=== PATIENT | female | born 1990 | race Caucasian/White ===

== ENCOUNTER 2016-12-04 14:54 | Outpatient (CLI) | payer MEDICAID ==
[2016-12-04 15:54] LABS: ABSOLUTE BASOPHILS # (AUTO) 0.1 10^3/uL (0.0-0.2); ABSOLUTE EOSINOPHILS # (AUTO) 0.1 10^3/uL (0.0-0.6); ABSOLUTE LYMPHOCYTES (AUTO) 2.1 10^3/uL (0.5-4.7); ABSOLUTE MONOCYTES (AUTO) 0.7 10^3/uL (0.1-1.4); ABSOLUTE NEUT (AUTO) 5.7 10^3/uL (1.7-8.2); BASOPHILS % (AUTO) 0.8 % (0-2); EOSINOPHILS % (AUTO) 1.3 % (0-6); HEMATOCRIT 33.4 % (36.0-47.0); HEMOGLOBIN 11.7 g/dL (12.0-15.5); HGB HCT DIFFERENCE 1.7; MEAN CORPUSCULAR HEMOGLOBIN 29.5 pg (27.0-33.4); MEAN CORPUSCULAR HGB CONC 35.1 g/dL (32.0-36.0); MEAN CORPUSCULAR VOLUME 84 fl (80-97); MONOCYTES % (AUTO) 8.6 % (3-13); RED BLOOD COUNT 3.98 10^6/uL (3.72-5.28); RED CELL DISTRIBUTION WIDTH 13.5 % (11.5-14.0); SEGMENTED NEUTROPHILS % (AUTO) 65.3 % (42-78); WHITE BLOOD COUNT 8.7 10^3/uL (4.0-10.5)
[2016-12-04 16:17] LABS: ALANINE AMINOTRANSFERASE 21 U/L (9-52); ALBUMIN 3.1 g/dL (3.5-5.0); ALKALINE PHOSPHATASE 127 U/L (38-126); ANION GAP 9 (5-19); ASPARTATE AMINO TRANSFERASE 15 U/L (14-36); BILIRUBIN,DIRECT 0.1 mg/dL (0.0-0.4); BILIRUBIN,TOTAL 0.3 mg/dL (0.2-1.3); BLOOD UREA NITROGEN 8 mg/dL (7-20); CALCIUM 9.4 mg/dL (8.4-10.2); CARBON DIOXIDE 24 mmol/L (22-30); CHLORIDE 106 mmol/L (98-107); CREATININE RESULT 0.58 mg/dL (0.52-1.25); GLUCOSE 86 mg/dL (75-110); LDH 362 U/L (313-618); POTASSIUM 4.5 mmol/L (3.6-5.0); SODIUM 138.7 mmol/L (137-145); TOTAL PROTEIN 5.9 g/dL (6.3-8.2); URIC ACID 5.5 mg/dL (2.5-6.2)
[2016-12-04 16:31] LABS: APPEARANCE,URINE CLEAR; BILIRUBIN,URINE NEGATIVE (NEGATIVE); GLUCOSE, URINE NEGATIVE (NEGATIVE); KETONES,URINE NEGATIVE (NEGATIVE); LEUKOCYTE ESTERASE,URINE TRACE (NEGATIVE); NITRITE,URINE NEGATIVE (NEGATIVE); PROTEIN,URINE NEGATIVE (NEGATIVE); URINE SPECIFIC GRAVITY 1.011; UROBILINOGEN,URINE NEGATIVE mg/dL (<2.0)
--- NOTE | 2016-12-04 16:41 | Non Stress Test Report ---
Non Stress Test Datetime Report Generated by CPN: 12/04/2016 16:41 DEMOGRAPHIC EGA NST: 35.4 INDICATION Indication for Study: Ordered by Provider MONITORING Monitor Explained: Monitor Explained; Test Explained; Patient Verbalized Understanding Time on Monitor: 12/04/2016 15:06 Time off Monitor: 12/04/2016 16:01 NST Duration: 55 NST INTERVENTIONS NST Interventions: None Physician Notified NST: Tracy Coronel CNM BABY A: [id number] Movement : Present Contraction Frequency : none FHR Baseline : 125 Accelerations : 15X15 Decelerations : None Variability : Moderate 6-25bpm NST Review: Meets Criteria for Reactive NST NST Review and Verified By : SHAYNE Carter Results: Reactive NST REPORT Report Trigger: Send Report
[2016-12-04 16:44] LABS: URINE BARBITURATES SCREEN NEGATIVE; URINE METHADONE SCREEN NEGATIVE; URINE OPIATES LOW NEGATIVE; URINE PHENCYCLIDINE SCREEN NEGATIVE
== END 2016-12-04 16:36 | disposition home or self-care (01) ==
LOC: LC 14:54
PROVIDERS: ATTEND Obstetrics & Gynecology
PROC: 4A1HXCZ Monitoring of Products of Conception, Cardiac Rate, External Approach (ICD-10-PCS; principal; 2016-12-04)
DX: Z36 Encounter for antenatal screening of mother (principal); Z13.6 Encounter for screening for cardiovascular disorders; Z3A.35 35 weeks gestation of pregnancy
CPT/HCPCS: 36415; 59025; 80053; 80307; 81001; 83615; 84550; 85025

== ENCOUNTER 2016-12-18 14:59 | Outpatient (CLI) | payer MEDICAID | END 2016-12-18 15:24 | disposition home or self-care (01) | LOC: LC 14:59 | PROVIDERS: ATTEND Student in an Organized Health Care Education/Training Program | PROC: 4A1HXCZ Monitoring of Products of Conception, Cardiac Rate, External Approach (ICD-10-PCS; principal; 2016-12-18) | DX: Z34.93 Encounter for supervision of normal pregnancy, unspecified, third trimester (principal); Z36 Encounter for antenatal screening of mother; Z3A.37 37 weeks gestation of pregnancy | CPT/HCPCS: 59025 ==

== ENCOUNTER 2016-12-25 04:58 | Inpatient (IN) | payer MEDICAID ==
[2016-12-24 11:27] LABS: ABSOLUTE EOSINOPHILS # (AUTO) 0.1 10^3/uL (0.0-0.6); ABSOLUTE LYMPHOCYTES (AUTO) 2.1 10^3/uL (0.5-4.7); ABSOLUTE MONOCYTES (AUTO) 0.5 10^3/uL (0.1-1.4); BASOPHILS % (AUTO) 0.3 % (0-2); EOSINOPHILS % (AUTO) 1.3 % (0-6); HEMATOCRIT 36.8 % (36.0-47.0); HEMOGLOBIN 12.4 g/dL (12.0-15.5); HGB HCT DIFFERENCE 0.4; LYMPHOCYTES % (AUTO) 23.5 % (13-45); MEAN CORPUSCULAR HEMOGLOBIN 28.5 pg (27.0-33.4); MEAN CORPUSCULAR HGB CONC 33.8 g/dL (32.0-36.0); MEAN CORPUSCULAR VOLUME 84 fl (80-97); MONOCYTES % (AUTO) 5.7 % (3-13); RED BLOOD COUNT 4.35 10^6/uL (3.72-5.28); SEGMENTED NEUTROPHILS % (AUTO) 69.2 % (42-78); WHITE BLOOD COUNT 8.7 10^3/uL (4.0-10.5)
[2016-12-24 11:40] LABS: APPEARANCE,URINE SLIGHTLY-CLOUDY; BILIRUBIN,URINE NEGATIVE (NEGATIVE); GLUCOSE, URINE NEGATIVE (NEGATIVE); KETONES,URINE NEGATIVE (NEGATIVE); PROTEIN,URINE NEGATIVE (NEGATIVE); URINE SPECIFIC GRAVITY 1.014
[2016-12-24 11:41] LABS: LEUKOCYTE ESTERASE,URINE TRACE (NEGATIVE); NITRITE,URINE NEGATIVE (NEGATIVE); RBC,URINE 0-1 /HPF; UROBILINOGEN,URINE NEGATIVE mg/dL (<2.0)
[2016-12-24 11:50] LABS: URINE BARBITURATES SCREEN NEGATIVE; URINE METHADONE SCREEN NEGATIVE; URINE OPIATES LOW NEGATIVE; URINE PHENCYCLIDINE SCREEN NEGATIVE
[2016-12-25] MEDS ORDERED: CEFAZOLIN 1 GM/D5W RTU 1 GM/50 ML RTUPB IV PRN (05:00)
[2016-12-25] MEDS ORDERED: LACTATED RINGERS 1000 ML IV PRN (05:00)
[2016-12-25] MEDS ORDERED: LIDOCAINE 0.5% INJ-PF (5 MG/ML) 50 ML SDV SUBCUT PRN (05:00)
[2016-12-25] MEDS ORDERED: MIDAZOLAM 2 MG/2 ML INJ ONE (07:24)
[2016-12-25] MEDS ORDERED: OXYTOCIN 10 UNIT/ML VIAL ONE (07:24)
[2016-12-25] MEDS ORDERED: FENTANYL CITRATE INJ/PF 100 MCG/2 ML AMPUL ONE ×2 (07:24→08:56)
[2016-12-25] MEDS ORDERED: METHYLERGONOVINE MALEATE INJ/PF 0.2 MG/1 ML AMPULE ONE (07:25)
[2016-12-25] MEDS ORDERED: OXYTOCIN/NORMAL SALINE 20 UNIT/1,000 ML RTUINJ ONE (07:25)
[2016-12-25] MEDS ORDERED: ACETAMINOPHEN 100 ML IV ONE (07:25)
[2016-12-25] MEDS ORDERED: EPHEDRINE SULFATE INJ 50 MG/1 ML AMPULE ONE (07:25)
[2016-12-25] MEDS ORDERED: PROMETHAZINE HCL INJ 25 MG/1 ML VIAL IV PRN ×3 (07:56→09:08)
[2016-12-25] MEDS ORDERED: DIPHENHYDRAMINE HCL 50 MG/ML VIAL IV PRN (07:56)
[2016-12-25] MEDS ORDERED: FENTANYL CITRATE INJ/PF 100 MCG/2 ML AMPUL IV PRN ×3 (07:56)
[2016-12-25] MEDS ORDERED: ONDANSETRON HCL INJ/PF 4 MG/2 ML SDV IV PRN (07:56)
[2016-12-25] MEDS ORDERED: OXYCODONE-ACETAMINOPHEN 5-325 MG TABLET PO PRN ×2 (07:56)
[2016-12-25] MEDS ORDERED: MORPHINE SULFATE 10 MG/ML INJ IV PRN (07:56)
[2016-12-25] MEDS ORDERED: MEPERIDINE HCL/PF INJ 25 MG/1 ML DISP.SYRIN IV PRN (07:56)
[2016-12-25] MEDS ORDERED: HYDROMORPHONE HCL INJ/PF 2 MG/ML AMPULE IV PRN (09:08)
[2016-12-25] MEDS ORDERED: DIPH/PERTUSS(ACELL)/TETANUS VAC/PF 0.5 ML SYR (>=10YO) IM PRN (09:08)
[2016-12-25] MEDS ORDERED: OXYTOCIN/NORMAL SALINE 1,000 ML IV PRN (09:08)
[2016-12-25] MEDS ORDERED: MEASLES,MUMPS&RUBELLA VACC/PF 0.5 ML VIAL SUBCUT PRN (09:08)
[2016-12-25] MEDS ORDERED: RINGERS SOLUTION,LACTATED 1,000 ML IV PRN (09:08)
[2016-12-25] MEDS ORDERED: ACETAMINOPHEN 325 MG TABLET PO PRN (09:08)
[2016-12-25] MEDS ORDERED: SIMETHICONE 80 MG TAB.CHEW PO PRN (09:08)
[2016-12-25] MEDS: DOCUSATE SODIUM 100 MG CAPSULE PO SCH ×2 (11:35→17:50)
[2016-12-25] MEDS: PRENATAL VITAMIN W-O CA NO5/FE FUMARATE/FA CAPSULE PO SCH (11:35)
[2016-12-25] MEDS ORDERED: KETOROLAC TROMETHAMINE INJ/PF 30 MG/1 ML SDV IV SCH (14:00)
[2016-12-25] MEDS ORDERED: ONDANSETRON HCL INJ/PF 4 MG/2 ML SDV ONE (14:17)
[2016-12-25] MEDS: OXYCODONE-ACETAMINOPHEN 5-325 MG TABLET PO PRN ×2 (16:55→22:06)
[2016-12-25] MEDS: KETOROLAC TROMETHAMINE INJ/PF 30 MG/1 ML SDV IV SCH (17:49)
[2016-12-26] MEDS: KETOROLAC TROMETHAMINE INJ/PF 30 MG/1 ML SDV IV SCH (02:09)
[2016-12-26] MEDS: OXYCODONE-ACETAMINOPHEN 5-325 MG TABLET PO PRN ×2 (05:30→16:29)
[2016-12-26 06:49] LABS: HEMATOCRIT 28.4 % (36.0-47.0); HGB HCT DIFFERENCE 0.7; MEAN CORPUSCULAR HGB CONC 34.2 g/dL (32.0-36.0); MEAN CORPUSCULAR VOLUME 85 fl (80-97); RED BLOOD COUNT 3.36 10^6/uL (3.72-5.28); RED CELL DISTRIBUTION WIDTH 14.3 % (11.5-14.0); WHITE BLOOD COUNT 8.9 10^3/uL (4.0-10.5)
[2016-12-26 06:52] LABS: HEMOGLOBIN 9.7 g/dL (12.0-15.5)
--- NOTE | 2016-12-26 08:10 | PDOC PROGRESS REPORT ---
Subjective-OB Subjective: Post Delivery Day: 1 26 year old. Denies any needs at this time, states lochia is stable, pain well controled, voiding without difficulty. Physical Exam (OB) Vital Signs: Temp Pulse Resp BP Pulse Ox 97.9 F 88 18 145/89 H 98 12/25/16 15:08 12/26/16 06:42 12/26/16 06:42 12/26/16 06:42 12/26/16 06:42 Intake & Output 12/25/16 12/26/16 12/27/16 06:59 06:59 06:59 Intake Total 2380 Output Total 2630 Balance -250 Weight 95.5 kg - PIH/Pre-Eclampsia Clonus: Negative Headache: Absent Epigastric Pain: No Visual Changes: No - Dressing Removed: No Incision: Dressing Closure Type: opsite - Lochia Lochia Amount: Small 10-25 ml Lochia Color: Rubra/Red - Abdomen Description: Tender, Soft Hernia Present: No Fundal Description: Firm Fundal Height: u/u - u/2 Objective-Diagnostic Laboratory: 12/26/16 06:17 12/26/16 06:17 WBC 8.9 RBC 3.36 L Hgb 9.7 L D Hct 28.4 L MCV 85 MCH 29.0 MCHC 34.2 RDW 14.3 H Plt Count 179 Assessment and Plan(PN) - Assessment and Plan (1) Status post primary low transverse section Is this a current diagnosis for this admission?: YesPlan: routine post op care (3) Acute blood loss anemia Is this a current diagnosis for this admission?: YesPlan: ferrous sulfate increase dietary iron (4) Chronic hypertension Is this a current diagnosis for this admission?: YesPlan: labetalol 100 mg qd restarted monitor bp and s/sx of pre-e - Time Spent with Patient Time with patient: Less than 15 minutes Critical Time spent with patient: Less than 15 minutes Medications reviewed and adjusted accordingly: Yes - Disposition Anticipated Discharge: Home Within: within 24 hours
[2016-12-26] MEDS: DOCUSATE SODIUM 100 MG CAPSULE PO SCH ×2 (09:31→17:46)
[2016-12-26] MEDS: PRENATAL VITAMIN W-O CA NO5/FE FUMARATE/FA CAPSULE PO SCH (09:31)
[2016-12-26] MEDS ORDERED: LABETALOL HCL 200 MG TABLET PO SCH (10:00)
[2016-12-26] MEDS: IBUPROFEN 800 MG TABLET PO SCH ×3 (11:50→23:33)
[2016-12-27] MEDS: IBUPROFEN 800 MG TABLET PO SCH (05:41)
[2016-12-27] MEDS: OXYCODONE-ACETAMINOPHEN 5-325 MG TABLET PO PRN (05:41)
[2016-12-27 08:05] VITALS: BP 135/79
--- NOTE | 2016-12-27 09:02 | PDOC DISCHARGE SUMMARY ---
Final Diagnosis Discharge Date: 12/27/16 - Final Diagnosis (1) Status post primary low transverse section Is this a current diagnosis for this admission?: Yes (2) Tubal ligation status Is this a current diagnosis for this admission?: Yes (4) Acute blood loss anemia Is this a current diagnosis for this admission?: Yes Discharge Data - Discharge Medication Home Medications: Pnv W-O Ca No5/Fe Fumarate/FA [-U Multiple Vitamin Capsule] 1 each PO DAILY #100 capsule 06/08/13 Nifedipine [Procardia XL 30 mg Tablet] 60 mg PO DAILY #30 tab.er.24 01/01/14 Metoprolol Tartrate [Lopressor 25 mg Tablet] 25 mg PO QHS #20 tablet 01/03/14 Sulfamethoxazole/Trimethoprim [Bactrim Ds Tablet] 1 each PO BID 7 Days 01/09/14 Labetalol HCl 1 tab PO BID #60 tablet 09/27/15 Docusate Sodium [Colace 100 mg Capsule] 100 mg PO BID #60 capsule 12/27/16 Ibuprofen [Motrin 800 mg Tablet] 800 mg PO Q6 #90 tablet 12/27/16 Labetalol HCl [Normodyne 200 mg Tablet] 100 mg PO DAILY #30 tablet 12/27/16 Oxycodone HCl/Acetaminophen [Percocet 5-325 mg Tablet] 2 tab PO Q4HP PRN #30 tablet 12/27/16 Reason(s) for Admission: Ceasarean Section-Primary, Tubal Ligation Procedures: NST Intrapartum Procedure(s): : Low Cervical, Transverse - [place] Data Baby 1 Male at 1 minute: 8 at 5 minutes: 9 Weight: 3.912 kg Home with Mother: Yes Complications: No - Diagnosis Test Laboratory: Temp Pulse Resp BP Pulse Ox 98.1 F 83 18 135/79 H 100 12/27/16 08:00 12/27/16 08:00 12/27/16 08:00 12/27/16 08:00 12/27/16 08:00 12/24/16 12/24/16 12/26/16 09:57 10:10 06:17 RBC 4.35 3.36 L Hgb 12.4 9.7 L D Hct 36.8 28.4 L Urine Opiates Screen NEGATIVE - Discharge information/Instructions Discharge Activity: Activity As Tolerated, No Driving, No Lifting Over 10 Pounds , Pelvic Rest, No tub bath Discharge Diet: Regular Disposition: HOME, SELF-CARE Follow up with: [facility] in: 1, Weeks
[2016-12-27] MEDS: DOCUSATE SODIUM 100 MG CAPSULE PO SCH (10:04)
[2016-12-27] MEDS: PRENATAL VITAMIN W-O CA NO5/FE FUMARATE/FA CAPSULE PO SCH (10:04)
--- NOTE | 2017-01-05 22:42 | Operative Report ---
Operative Report DATE OF SURGERY: 12/25/16 PREOPERATIVE DIAGNOSIS: 39 week, unstable lie, undesired future fertility POSTOPERATIVE DIAGNOSIS: same, delivered OPERATION: Primary Low Transverse Section. Bilateral Tubal Ligation by Modified Spring Method SURGEON: GUILLERMO PAYAN ANESTHESIA: Spinal TISSUE REMOVED OR ALTERED: placenta, bilateral midportion of fallopian tubes COMPLICATIONS: none ESTIMATED BLOOD LOSS: 500cc INTRAOPERATIVE FINDINGS: viable infant ap 8/9. intact placenta 3vc. normal uterus ovaries and tubes PROCEDURE: After appropriate consents had been obtained, the patient was taken to the operating room where regional anesthesia was placed without difficulty. The patient was prepped and draped in the normal sterile fashion in the dorsal supine position with a leftward tilt. Time out procedure was performed. Anesthesia was determined to be adequate and a pfannenstiel incision was made through the prior scar. The fascia was nicked in the midline then extended bilaterally with Martinez scissors. The fascia was elevated and then the rectus muscles dissected off sharply. The rectus muscles were then in the midline and the peritonuem identified. The peritoneum was entered sharply and extended with good visualization of the bladder. Bladder blade was inserted and the bladder flap carefully dissected off the lower uterine segment. A transverse incision was made with the scalpel then extended bilaterally in an upward outward motion across the lower uterine segment. Amniotomy revealed clear fluid. The vertex was grasped and elevated easily through the incision followed by the remainder of the . The cord was doubly clamped and ligated. The infant was handed off the operative field to the waiting pediatric team. The placenta was then extracted manually intact. The uterus was exteriorized and cleansed of membranous tissue with a sponge on the press operator heavy duty's hand. The uterine incision was then repaired using 0 vicryl in a running locked fashion. A second layer of the same suture was used to imbricate for hemastasis. Attention was then returned to the right fallopian tube which was grasped in the midportion with a bridger clamp. A window was created in the mesosalpinx with the bovie. Suture 0plain ties were then placed proximally and distally and the midportion of the tube removed with metzenbaum sutures. Hemostasis along the mesosalpinx was achieved with the bovie. This procedure was then repeated on the left fallopian tube. All operative sites were hemostatic. The uterus was then returned to the abdomen and gutters were cleared of clots and debris. The fascial incision was closed with 0 vicryl in a running fashion to the midline. The subcutaneous layer was closed with 0 plain in a running stitch. the skin was closed with 4-0 monocryl in subcuticular running stitch. Sponge, lap and needle counts were correct. The patient was transferred to recovery in stable condition.
== END 2016-12-27 10:55 | disposition home or self-care (01) | DRG 765 ==
LOC: 2S 04:58
PROVIDERS: ADMIT Obstetrics & Gynecology; ATTEND Obstetrics & Gynecology
PROC: 0UB70ZZ Excision of Bilateral Fallopian Tubes, Open Approach (ICD-10-PCS; 2016-12-25)
PROC: 4A1HXCZ Monitoring of Products of Conception, Cardiac Rate, External Approach (ICD-10-PCS; 2016-12-25)
PROC: 10D00Z1 Extraction of Products of Conception, Low, Open Approach (ICD-10-PCS; principal; 2016-12-25 07:45)
PROC: 3E0234Z Introduction of Serum, Toxoid and Vaccine into Muscle, Percutaneous Approach (ICD-10-PCS; 2016-12-27)
DX: O34.211 Maternal care for low transverse scar from previous cesarean delivery (principal); D62 Acute posthemorrhagic anemia; O13.4 Gestational [pregnancy-induced] hypertension without significant proteinuria, complicating childbirth; Z37.0 Single live birth; O99.334 Smoking (tobacco) complicating childbirth; F17.210 Nicotine dependence, cigarettes, uncomplicated; O99.02 Anemia complicating childbirth; Z30.2 Encounter for sterilization; Z23 Encounter for immunization
CPT/HCPCS: 1961; 36415; 59025; 80307; 81001; 85025; 85027; 86850; 86900; 86901; 88302; 90715; 94799; J0131; J0690; J1170; J1885; J2210; J2250; J2405; J2590; J3010; J3490; J7120

== ENCOUNTER 2017-03-31 17:28 | Emergency (ER) | payer MEDICAID ==
[2017-03-31 17:34] VITALS: BP 164/109
--- NOTE | 2017-03-31 18:19 | ER Document Report ---
HPI - HPI Patient complains to provider of: dental pain Pain Level: 4 Context: 27 yo female c/o dental pain to left upper and lower jaw x 1 week Associated Symptoms: None Exacerbated by: Food Relieved by: Denies Similar symptoms previously: No Recently seen / treated by doctor: No - ROS Systems Reviewed and Negative: Yes All other systems reviewed and negative - CARDIOVASCULAR Cardiovascular: DENIES: Chest pain - REPRODUCTIVE Reproductive: DENIES: : - DERM Skin Color: Normal Past Medical History - General Information source: Patient - Social History Smoking Status: Current Every Day Smoker Chew tobacco use (# tins/day): No Frequency of alcohol use: None Drug Abuse: None Lives with: Family Family History: CAD, Hypertension - Past Medical History Cardiac Medical History: Reports: Hx Hypertension - DURING Denies: Hx Heart Murmur Neurological Medical History: Reports: Hx Seizures - 6MOS-1 YO, NONE SINCE, NO CURRENT SEIZURE MEDS. Denies: Hx Cerebrovascular Accident Renal/ Medical History: Denies: Hx Kidney Stones, Hx Ovarian Cysts, Hx Peritoneal Dialysis, Hx Pelvic Inflammatory Disease Malignancy Medical History: Denies: Hx Breast Cancer, Hx Cervical Cancer, Hx Ovarian Cancer GI Medical History: Denies: Hx Gastroesophageal Reflux Disease, Hx Hiatal Hernia , Hx Ulcer Musculoskeltal Medical History: Reports Hx Musculoskeletal Trauma Surgical Hx: Negative - Immunizations Immunizations up to date: Yes Hx Diphtheria, Pertussis, Tetanus Vaccination: Yes - received 2011 [facility] Provider Document - CONSTITUTIONAL Agree With Documented VS: Yes Exam Limitations: No Limitations - INFECTION CONTROL TRAVEL OUTSIDE OF THE [place] IN LAST 30 DAYS: No - HEENT HEENT: Atraumatic, PERRLA Mouth Diagram: 1 - pain, no gingival edema appreciated 2 - pain Notes: + left TMJ tenderness - NECK Neck: Normal Inspection, Supple - RESPIRATORY Respiratory: Breath Sounds Normal, No Respiratory Distress O2 Sat by Pulse Oximetry: 98 - CARDIOVASCULAR Cardiovascular: Regular Rate, Regular Rhythm - MUSCULOSKELETAL/EXTREMETIES Musculoskeletal/Extremeties: MAEW, FROM, Non-Tender - NEURO Level of Consciousness: Awake, Alert, Appropriate - DERM Integumentary: Warm, Dry Course - Re-evaluation Re-evalutation: 03/31/17 18:19 BP noted to be elevated. pt has hx/o HTN. not taking medication as prescribed. asymptomatic. no signs of hypertensive crisis - Vital Signs Vital signs: Temp Pulse Resp BP Pulse Ox 99.1 F 88 18 164/109 H 98 03/31/17 17:33 03/31/17 17:33 03/31/17 17:33 03/31/17 17:33 03/31/17 17:33 Discharge - Discharge Clinical Impression: Pain, dental Condition: Stable Disposition: HOME, SELF-CARE Instructions: Toothache ([facility]), Penicillin V K ([facility]), [facility], Ultram ([facility]), Ibuprofen (General) ([facility]) Prescriptions: Ibuprofen [Motrin 800 Mg Tablet] 800 mg PO Q6H #20 tablet Tramadol HCl [Ultram 50 mg Tablet] 50 mg PO ASDIR PRN #20 tablet PRN Reason: Forms: Elevated Blood Pressure
== END 2017-03-31 18:38 | disposition home or self-care (01) ==
LOC: ER 17:28
DX: K08.89 Other specified disorders of teeth and supporting structures (principal); F17.200 Nicotine dependence, unspecified, uncomplicated; I10 Essential (primary) hypertension; Z91.14 Patient's other noncompliance with medication regimen
CPT/HCPCS: 99282

== ENCOUNTER 2017-11-12 15:19 | Emergency (ER) | payer SELFPAY ==
--- NOTE | 2017-11-12 15:39 | ER Document Report ---
ED Medical Screen (RME) - General Chief Complaint: Abscess Stated Complaint: ABSCESS Time Seen by Provider: 11/12/17 15:38 Mode of Arrival: Ambulatory Information source: Patient Notes: Patient complains of Bartholin gland abscess that she has had for the past year that worsened over the past 2 weeks. Patient denies any fever. Patient denies any other significant medical history. I have greeted and performed a rapid initial assessment of this patient. A comprehensive ED assessment and evaluation of the patient, analysis of test results and completion of the medical decision making process will be conducted by additional ED providers. TRAVEL OUTSIDE OF THE [place] IN LAST 30 DAYS: No - Related Data Allergies/Adverse Reactions: No Known Allergies Allergy (Verified 11/12/17 15:21) Past Medical History - Social History Frequency of alcohol use: None Drug Abuse: None - Past Medical History Cardiac Medical History: Reports: Hx Hypertension - DURING Denies: Hx Heart Murmur Neurological Medical History: Reports: Hx Seizures - 6MOS-1 YO, NONE SINCE, NO CURRENT SEIZURE MEDS. Denies: Hx Cerebrovascular Accident Renal/ Medical History: Denies: Hx Kidney Stones, Hx Ovarian Cysts, Hx Peritoneal Dialysis, Hx Pelvic Inflammatory Disease Malignancy Medical History: Denies: Hx Breast Cancer, Hx Cervical Cancer, Hx Ovarian Cancer GI Medical History: Denies: Hx Gastroesophageal Reflux Disease, Hx Hiatal Hernia , Hx Ulcer Musculoskeltal Medical History: Reports Hx Musculoskeletal Trauma - Immunizations Immunizations up to date: Yes Hx Diphtheria, Pertussis, Tetanus Vaccination: Yes - received 2011 Physical Exam - Vital signs Vitals: Temp Pulse Resp BP Pulse Ox 98.7 F 91 16 147/96 H 99 11/12/17 15:27 11/12/17 15:27 11/12/17 15:27 11/12/17 15:27 11/12/17 15:27 - General General appearance: Appears well, Alert In distress: None Course - Vital Signs Vital signs: Temp Pulse Resp BP Pulse Ox 98.7 F 91 16 147/96 H 99 11/12/17 15:27 11/12/17 15:27 11/12/17 15:27 11/12/17 15:27 11/12/17 15:27 Doctor's Discharge - Discharge Referrals: JAYDEN AMES MD [Primary Care Provider] - Follow up as needed
[2017-11-12] MEDS ORDERED: CIPROFLOXACIN HCL 500 MG TABLET PO ONE (17:02)
[2017-11-12] MEDS ORDERED: CLINDAMYCIN HCL 150 MG CAPSULE PO ONE (17:02)
[2017-11-12] MEDS ORDERED: METRONIDAZOLE 500 MG TABLET PO ONE (17:02)
[2017-11-12 17:07] VITALS: BP 144/99
--- NOTE | 2017-11-12 17:08 | ER Document Report ---
ED Skin Rash/Insect Bite/Abscs - General Chief Complaint: Abscess Stated Complaint: ABSCESS Time Seen by Provider: 11/12/17 15:38 Mode of Arrival: Ambulatory Information source: Patient Notes: The 27-year-old female presented ED for a abscess to the left labia. She states that has been there for about a year getting worse for the last 2 weeks and much worse today. TRAVEL OUTSIDE OF THE [place] IN LAST 30 DAYS: No - HPI Patient complains to provider of: Tender/swollen area Onset: Other - Above Onset/Duration: Gradual, Worse Quality of pain: Pressure, Sharp, Throbbing Severity: Moderate Pain Level: 2 Skin Character: Abscess Quality of rash: Painful Identify cause: No Exacerbated by: Movement, Other - Sexual intercourse Relieved by: Denies Similar symptoms previously: Yes Recently seen / treated by doctor: No - Related Data Allergies/Adverse Reactions: No Known Allergies Allergy (Verified 11/12/17 15:21) Past Medical History - General Information source: Patient - Social History Smoking Status: Current Every Day Smoker Cigarette use (# per day): Yes - 5-7 cigarettes a day Chew tobacco use (# tins/day): No Smoking Education Provided: Yes - 4 minutes Frequency of alcohol use: None Drug Abuse: None 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 Family History: CAD, Hypertension Patient has suicidal ideation: No Patient has homicidal ideation: No - Past Medical History Cardiac Medical History: Reports: Hx Hypertension - DURING Pulmonary Medical History: Reports: None EENT Medical History: Reports: None Neurological Medical History: Reports: Hx Seizures - 6MOS-1 YO, NONE SINCE, NO CURRENT SEIZURE MEDS Endocrine Medical History: Reports: None Renal/ Medical History: Reports: None Malignancy Medical History: Reports: None GI Medical History: Reports: None Musculoskeltal Medical History: Reports Hx Musculoskeletal Trauma Skin Medical History: Reports Hx Cellulitis Psychiatric Medical History: Reports: None Traumatic Medical History: Reports: Hx Fractures - Ankle and leg Infectious Medical History: Reports: None Past Surgical History: Reports: Hx Section - Immunizations Immunizations up to date: Yes Hx Diphtheria, Pertussis, Tetanus Vaccination: Yes - received 2011 Review of Systems - Review of Systems Constitutional: No symptoms reported EENT: No symptoms reported Cardiovascular: No symptoms reported Respiratory: No symptoms reported Gastrointestinal: No symptoms reported Genitourinary: No symptoms reported Female Genitourinary: No symptoms reported Musculoskeletal: No symptoms reported Skin: Other - Left labial abscess Hematologic/Lymphatic: No symptoms reported Neurological/Psychological: No symptoms reported -: Yes All other systems reviewed and negative Physical Exam - Vital signs Vitals: Temp Pulse Resp BP Pulse Ox 98.7 F 91 16 147/96 H 99 11/12/17 15:27 11/12/17 15:27 11/12/17 15:27 11/12/17 15:27 11/12/17 15:27 Interpretation: Normal - General General appearance: Appears well, Alert - HEENT Head: Normocephalic, Atraumatic Eyes: Normal Pupils: PERRL - Respiratory Respiratory status: No respiratory distress Chest status: Nontender Breath sounds: Normal Chest palpation: Normal - Cardiovascular Rhythm: Regular Heart sounds: Normal auscultation Murmur: No - Abdominal Inspection: Normal Distension: No distension Bowel sounds: Normal Tenderness: Nontender Organomegaly: No organomegaly - Back Back: Normal, Nontender - Extremities General upper extremity: Normal inspection, Nontender, Normal color, Normal ROM , Normal temperature General lower extremity: Normal inspection, Nontender, Normal color, Normal ROM , Normal temperature, Normal weight bearing. No: Juan C's sign - Neurological Neuro grossly intact: Yes Cognition: Normal Orientation: AAOx4 [place] Coma Scale Eye Opening: Spontaneous Devyn Coma Scale Verbal: Oriented [place] Coma Scale Motor: Obeys Commands Devyn Coma Scale Total: 15 Speech: Normal Motor strength normal: LUE, RUE, LLE, RLE Sensory: Normal - Psychological Associated symptoms: Normal affect, Normal mood - Skin Skin Temperature: Warm Skin Moisture: Dry Skin Color: Normal Skin irregularity: Abscess - Left labia Location of irregularity: Other - Left labia Irregularity with: Swelling, Tenderness, Warmth Course - Re-evaluation Re-evalutation: 11/13/17 01:[address] Gardiner concerning the foul brown drainage from this labial abscess. He stated that she start the patient on Flagyl Cipro and clindamycin. Flagyl clindamycin and Cipro were ordered for the patient and discharged home with prescriptions for the same. Patient was instructed to [facility] with [facility] due to the amount of brown foul-smelling drainage that appeared and smelled like stool from this labial abscess. - Vital Signs Vital signs: Temp Pulse Resp BP Pulse Ox 97.8 F 74 16 144/99 H 100 11/12/17 17:06 11/12/17 17:06 11/12/17 17:06 11/12/17 17:06 11/12/17 17:06 Procedures - Incision and Drainage Left Labia Time completed: 16:45 Type: Simple Anesthetic type: 1% Lidocaine mL's of anesthetic: 5 Blade size: 11 I&D procedure: Shurclens applied Incision Method: Incision made by scalpel Amount/type of drainage: Large amount of purulent liquid brown foul-smelling drainage Discharge - Discharge Clinical Impression: Left genital labial abscess Condition: Stable Disposition: HOME, SELF-CARE Additional Instructions: ABSCESS: You have an abscess (boil). This a pus-forming infection, usually due to staph. Some boils may be left to drain on their own, but most require lancing. From the time the tender lump first appears, it may be three or four days before the abscess is ready to vero. Local heat and rest help at this stage of treatment. An antibiotic may prevent spread of the infection. Once the abscess is opened, packing may be placed into it. This is done so pus is not sealed inside by premature closure of the cavity. The packing will be removed at your follow-up visit or you may be advised to remove it yourself at home. Sometimes this packing must be replaced a few times during healing. The wound will heal with surprisingly little scar. Depending on the size and location of an abscess, healing can take one to four weeks. You may shower and wash the area around the incision site two or three times a day. Antibiotics may be prescribed, but are usually not necessary after an abscess has been drained. If you develop fever, chills, worsening pain, or increasing swelling in the area, call the doctor or return immediately. POST INCISION AND DRAINAGE: You have had an incision made to allow drainage of an abscess. The incision must remain open so that pus and debris can drain from the wound. If the abscess cavity is large, packing is placed. This keeps the tissues from collapsing and trapping pus inside, while the body shrinks the cavity. The packing may need to be replaced every day or two. The physician will instruct you on the packing. Keep a bulky dressing over the area. Replace it if it becomes saturated with blood or pus. Do not disturb the packing (if present). You may shower and cleanse the area with gentle soap and warm water two or three times a day. Local warmth may be soothing, and may promote faster healing. Return if you develop high fever or chills, or if you note spreading redness, increasing swelling, or increasing tenderness. ORAL NARCOTIC MEDICATION: You have been given a prescription for pain control. This medication is a narcotic. It's best taken with food, as nausea can result if taken on an empty stomach. Don't operate machinery or drive within six hours of taking this medication. Do not combine this medicine with alcohol, or with any medication which can cause sedation (such as cold tablets or sleeping pills) unless you get permission from the physician. Narcotics tend to cause constipation. If possible, drink plenty of fluids and eat a diet high in fiber and fruits. Ciprofloxacin You have been given an antibacterial agent, ciprofloxacin (Cipro). This medicine is not related to the penicillins, sulfas, cephalosporins, or tetracyclines. It is often given to patients who are allergic to these drugs. It has been chosen for you either because other drugs are not appropriate, or because of the nature of your problem. Cipro should not be taken with antacids, as these can decrease its effectiveness. It can be taken without regard to meals. CIPRO SHOULD NOT BE TAKEN BY CHILDREN, NURSING WOMEN, OR WOMEN. Although Cipro is usually well-tolerated, common side effects can include nausea and diarrhea. Contact your doctor if you experience any unusual symptoms while on this medication, such as joint pain or swelling, shortness of breath, wheezing, faintness, or hives. Metronidazole Metronidazole (Flagyl) has been prescribed. This medication is used to kill a type of bacteria called anaerobes, and protozoan parasites such as trichomonas and Giardia. Flagyl often causes a metallic taste in the mouth and mild nausea. Do not use alcohol in any form with Flagyl (including alcohol in medication elixirs). Flagyl interacts with alcohol to cause flushing, palpitations, headache, stomach cramps, and vomiting. Do not use Flagyl if you are taking Antabuse (disulfiram). Call the doctor at once if you develop rash, shortness of breath, itching, or lightheadedness. Clindamycin You have been given a prescription for the antibiotic clindamycin. It is often prescribed for infections in the mouth, such as dental infections or abscesses, and for skin infections due to MRSA. It's important that you take all the medication, unless instructed otherwise by your physician. Failure to complete the entire course can result in relapse of your condition. Common side effects of antibiotics include nausea, intestinal cramping, or diarrhea. Women may develop vaginal yeast infections, and babies can get yeast (thrush) in the mouth following the use of antibiotics. Contact your physician if you develop significant side effects from this medication. Allergy to this antibiotic can result in hives, wheezing, faintness, or itching. If symptoms of allergy occur, stop the medication and call the doctor. FOLLOW-UP CARE: Most simple abscesses will not require a follow up visit. If you had packing placed in the abscess, remove it as instructed by the physician. If you have been referred to a physician for follow-up care, call the physicians office for an appointment as you were instructed or within the next two days. If you experience worsening or a significant change in your symptoms, return to the Emergency Department at any time for re-evaluation. Prescriptions: Hydrocodone/Acetaminophen [[place] 5-325 mg Tablet] 1 tab PO Q6HP PRN #10 tablet PRN Reason: Ciprofloxacin HCl [Cipro] 500 mg PO BID #14 tablet Clindamycin HCl 300 mg PO TID #21 capsule Metronidazole [Flagyl 500 mg Tablet] 500 mg PO BID #14 tablet Forms: Elevated Blood Pressure Referrals: JAYDEN AMES MD [Primary Care Provider] - 11/15/17
== END 2017-11-12 17:19 | disposition home or self-care (01) ==
LOC: ER 15:19
PROC: 0U9MXZZ Drainage of Vulva, External Approach (ICD-10-PCS; principal; 2017-11-12)
DX: N76.4 Abscess of vulva (principal); F17.210 Nicotine dependence, cigarettes, uncomplicated
CPT/HCPCS: 87070; 87075; 87205; 99283; 99406

== ENCOUNTER 2019-03-06 13:03 | Emergency (ER) | payer SELFPAY ==
--- NOTE | 2019-03-06 13:30 | ER Document Report ---
ED Medical Screen (RME) - General Chief Complaint: Abdominal Pain Stated Complaint: ABDOMINAL PAIN Time Seen by Provider: 03/06/19 13:26 Primary Care Provider: JAYDEN AMES MD [Primary Care Provider] - Follow up as needed Mode of Arrival: Ambulatory Information source: Patient Notes: Patient presents complaining of periumbilical abdominal pain that started yeste rday. Patient states pain worsened today. Patient denies any nausea or vomiting but does report diarrhea x3 episodes has been black in color. Patient denies any fever or urinary symptoms. Patient does complain of a cyst in the vaginal area for the past month as well. I have greeted and performed a rapid initial assessment of this patient. A comprehensive ED assessment and evaluation of the patient, analysis of test results and completion of the medical decision making process will be conducted by additional ED providers. TRAVEL OUTSIDE OF THE [place] IN LAST 30 DAYS: No - Related Data Allergies/Adverse Reactions: No Known Allergies Allergy (Verified 03/06/19 13:06) Past Medical History - Past Medical History Cardiac Medical History: Reports: Hx Hypertension - DURING Denies: Hx Heart Murmur Neurological Medical History: Reports: Hx Seizures - 6MOS-2 YO, NONE SINCE, NO CURRENT SEIZURE MEDS. Denies: Hx Cerebrovascular Accident Renal/ Medical History: Denies: Hx Kidney Stones, Hx Ovarian Cysts, Hx Peritoneal Dialysis, Hx Pelvic Inflammatory Disease Malignancy Medical History: Denies: Hx Breast Cancer, Hx Cervical Cancer, Hx Ovarian Cancer GI Medical History: Denies: Hx Gastroesophageal Reflux Disease, Hx Hiatal Hernia, Hx Ulcer Musculoskeltal Medical History: Reports Hx Musculoskeletal Trauma Skin Medical History: Reports Hx Cellulitis Traumatic Medical History: Reports: Hx Fractures - Ankle and leg Past Surgical History: Reports: Hx Section - Immunizations Immunizations up to date: Yes Hx Diphtheria, Pertussis, Tetanus Vaccination: Yes - received 2011 Physical Exam - Vital signs Vitals: Temp Pulse Resp BP Pulse Ox 98.5 F 98 16 167/108 H 99 03/06/19 13:09 03/06/19 13:09 03/06/19 13:09 03/06/19 13:03/06/19 13:09 - Abdominal Tenderness: Tender - Periumbilical Course - Vital Signs Vital signs: Temp Pulse Resp BP Pulse Ox 98.5 F 98 16 167/108 H 99 03/06/19 13:09 03/06/19 13:09 03/06/19 13:09 03/06/19 13:09 03/06/19 13:09 Doctor's Discharge - Discharge Referrals: JAYDEN AMES MD [Primary Care Provider] - Follow up as needed
[2019-03-06 14:20] LABS: ABSOLUTE BASOPHILS # (AUTO) 0.1 10^3/uL (0.0-0.2); ABSOLUTE EOSINOPHILS # (AUTO) 0.1 10^3/uL (0.0-0.6); ABSOLUTE LYMPHOCYTES (AUTO) 1.7 10^3/uL (0.5-4.7); ABSOLUTE MONOCYTES (AUTO) 0.5 10^3/uL (0.1-1.4); ABSOLUTE NEUT (AUTO) 8.3 10^3/uL (1.7-8.2); BASOPHILS % (AUTO) 0.5 % (0-2); EOSINOPHILS % (AUTO) 1.3 % (0-6); HEMATOCRIT 42.6 % (36.0-47.0); HEMOGLOBIN 14.7 g/dL (12.0-15.5); LYMPHOCYTES % (AUTO) 15.8 % (13-45); MEAN CORPUSCULAR HEMOGLOBIN 29.2 pg (27.0-33.4); MEAN CORPUSCULAR HGB CONC 34.6 g/dL (32.0-36.0); MEAN CORPUSCULAR VOLUME 85 fl (80-97); MONOCYTES % (AUTO) 4.6 % (3-13); PLATELET COUNT 265 10^3/uL (150-450); RED BLOOD COUNT 5.04 10^6/uL (3.72-5.28); RED CELL DISTRIBUTION WIDTH 13.3 % (11.5-14.0); SEGMENTED NEUTROPHILS % (AUTO) 77.8 % (42-78); TOTAL CELLS COUNTED % (AUTO) 100 %; WHITE BLOOD COUNT 10.7 10^3/uL (4.0-10.5)
[2019-03-06 14:25] LABS: APPEARANCE,URINE SLIGHTLY-CLOUDY; BILIRUBIN,URINE NEGATIVE (NEGATIVE); CALCIUM OXALATE CRYSTALS,URINE RARE /HPF; COLOR,URINE YELLOW; GLUCOSE, URINE NEGATIVE (NEGATIVE); KETONES,URINE NEGATIVE (NEGATIVE); LEUKOCYTE ESTERASE,URINE MODERATE (NEGATIVE); NITRITE,URINE NEGATIVE (NEGATIVE); PROTEIN,URINE NEGATIVE (NEGATIVE); URINE SPECIFIC GRAVITY 1.023; UROBILINOGEN,URINE NEGATIVE mg/dL (<2.0)
[2019-03-06 14:26] LABS: INTERNATIONAL RATION (INR) 0.96; PROTHROMBIN TIME 12.8 SEC (11.4-15.4)
[2019-03-06 14:27] LABS: PARTIAL THROMBOPLASTIN TIME 29.2 SEC (23.5-35.8)
[2019-03-06 14:37] LABS: ALANINE AMINOTRANSFERASE 24 U/L (9-52); ALBUMIN 4.4 g/dL (3.5-5.0); ALKALINE PHOSPHATASE 64 U/L (38-126); ANION GAP 9 (5-19); ASPARTATE AMINO TRANSFERASE 16 U/L (14-36); BILIRUBIN,DIRECT 0.2 mg/dL (0.0-0.4); BILIRUBIN,TOTAL 0.5 mg/dL (0.2-1.3); BLOOD UREA NITROGEN 10 mg/dL (7-20); CALCIUM 9.6 mg/dL (8.4-10.2); CARBON DIOXIDE 29 mmol/L (22-30); CHLORIDE 104 mmol/L (98-107); GLUCOSE 122 mg/dL (75-110); LIPASE 75.9 U/L (23-300); POTASSIUM 3.9 mmol/L (3.6-5.0); SODIUM 141.5 mmol/L (137-145); TOTAL PROTEIN 7.3 g/dL (6.3-8.2)
[2019-03-06] MEDS ORDERED: LIDOCAINE 1% INJ-PF (10 MG/ML) 30 ML SDV INJ ONE (15:55)
--- NOTE | 2019-03-06 16:00 | ER Document Report ---
ED General - General Chief Complaint: Abdominal Pain Stated Complaint: ABDOMINAL PAIN Time Seen by Provider: 03/06/19 13:26 Primary Care Provider: JAYDEN AMES MD [ACTIVE STAFF] - Follow up as needed Mode of Arrival: Ambulatory TRAVEL OUTSIDE OF THE [place] IN LAST 30 DAYS: No - HPI Notes: Patient is a 29-year-old female with history of and Bartholin abscesses who presents complaining of supraumbilical abdominal pain that does not radiate that began yesterday and is described as sharp as well as having another flareup of swollen Bartholin gland on the left side over the past month. Patient states that she did have 3 episodes of diarrhea this morning that she describes as dark-colored initially but then watery. She is able to eat and drink without difficulty otherwise. She is urinating normally. No other vaginal bleeding, odor, or discharge. Denies any headache, fever, neck pain, URI, sore throat, chest pain, palpitations, syncope, cough, shortness of breath, wheeze, dyspnea, nausea/vomiting, urinary retention, dysuria, hematuria, or rash. - Related Data Allergies/Adverse Reactions: No Known Allergies Allergy (Verified 03/06/19 13:06) Past Medical History - General Information source: Patient - Social History Smoking Status: Current Every Day Smoker Frequency of alcohol use: None Drug Abuse: None Family History: CAD, Hypertension Patient has suicidal ideation: No Patient has homicidal ideation: No - Past Medical History Cardiac Medical History: Reports: Hx Hypertension - DURING Denies: Hx Heart Murmur Neurological Medical History: Reports: Hx Seizures - 6MOS-1 YO, NONE SINCE, NO CURRENT SEIZURE MEDS. Denies: Hx Cerebrovascular Accident Renal/ Medical History: Denies: Hx Kidney Stones, Hx Ovarian Cysts, Hx Peritoneal Dialysis, Hx Pelvic Inflammatory Disease Malignancy Medical History: Denies: Hx Breast Cancer, Hx Cervical Cancer, Hx Ovarian Cancer GI Medical History: Denies: Hx Gastroesophageal Reflux Disease, Hx Hiatal Hernia, Hx Ulcer Musculoskeletal Medical History: Reports Hx Musculoskeletal Trauma Skin Medical History: Reports Hx Cellulitis Traumatic Medical History: Reports: Hx Fractures - Ankle and leg Past Surgical History: Reports: Hx Section - Immunizations Immunizations up to date: Yes Hx Diphtheria, Pertussis, Tetanus Vaccination: Yes - received 2012 Review of Systems - Review of Systems -: Yes All other systems reviewed and negative Physical Exam - Vital signs Vitals: Temp Pulse Resp BP Pulse Ox 98.5 F 98 16 167/108 H 99 03/06/19 13:09 03/06/19 13:09 03/06/19 13:09 03/06/19 13:09 03/06/19 13:09 - Notes Notes: PHYSICAL EXAMINATION: GENERAL: Well-appearing, well-nourished and in no acute distress. HEAD: Atraumatic, normocephalic. EYES: Pupils equal round and reactive to light, extraocular movements intact, sclera anicteric, conjunctiva are normal. ENT: EAC clear b/l. TM's intact b/l without erythema, fluid, or perforation. Nares patent and without discharge. oropharynx clear without exudates. No tonsilar hypertrophy or erythema. Moist mucous membranes. No sinus tenderness. NECK: Normal range of motion, supple without lymphadenopathy LUNGS: Breath sounds clear to auscultation bilaterally and equal. No wheezes rales or rhonchi. HEART: Regular rate and rhythm without murmurs, rubs, gallops. ABDOMEN: Soft, nondistended abdomen. No guarding, no rebound. Normal bowel sounds present. No CVA tenderness bilaterally. + tenderness supraumbilical. No lower pelvic tenderness. Kaur neg. No tenderness at [place]. : + large left bartholin abscess with fluctuance and mild tenderness. Musculoskeletal: FROM to passive/active. Strength 5+/5. Extremities: No cyanosis, clubbing, or edema b/l. Peripheral pulses 2+. Capillary refill less than 3 seconds. NEUROLOGICAL: Normal speech, normal gait. PSYCH: Normal mood, normal affect. SKIN: see above. Course - Re-evaluation Re-evalutation: 03/06/19 17:32 Patient is an afebrile, well-hydrated, 29-year-old female who presents to the emergency department with a left bartholin abscess and abd pain unspecified. Vitals are acceptable without significant tachycardia, tachypnea, or hypoxia. PE is otherwise unremarkable. Patient is nontoxic-appearing and is tolerating p.o. without difficulty. Incision and drainage was performed without any complications and packing was placed. Wound dressing was placed and wound in structions reviewed. Wound culture was obtained. labs otherwise unremarkable. No further labs or imaging warranted. Low suspicion for any sepsis, meningitis, SJS, acute abd, or other systemic emergent condition at this time. Patient to monitor symptoms for any acute changes and seek medical attention if so. Recheck with your PCM/ED in 2-3 days. Schedule an appointment with OBGYN. Return to the ED with any worsening/concerning symptoms as reviewed. Patient is in agreement. - Vital Signs Vital signs: Temp Pulse Resp BP Pulse Ox 98.5 F 98 16 167/108 H 99 03/06/19 13:09 03/06/19 13:09 03/06/19 13:09 03/06/19 13:09 03/06/19 13:09 - Laboratory Result Diagrams: 03/06/19 14:02 03/06/19 14:02 Laboratory results interpreted by me: 03/06/19 03/06/19 03/06/19 14:02 14:02 14:02 WBC 10.7 H Absolute Neutrophils 8.3 H Glucose 122 H Ur Leukocyte Esterase MODERATE H Urine Ascorbic Acid 40 H Procedures - Incision and Drainage Left Labia Time completed: 17:30 Type: Simple Anesthetic type: 1% Lidocaine mL's of anesthetic: 5 Blade size: 11 I&D procedure: Betadine prep applied, Iodoform packing placed Incision Method: Incision made by scalpel Amount/type of drainage: abundant chocolate colored purulence Discharge - Discharge Clinical Impression: Cyst of left Bartholin's gland, Abdominal pain of unknown cause Condition: Stable Disposition: HOME, SELF-CARE Instructions: Abdominal Pain ([facility]), Observation for Appendicitis ([facility]), Bartholin Gland Cyst or Abscess ([facility]) Additional Instructions: Do not shower or bathe for 24 hours. After 24 hours you may shower but no submersion of the wound under water. Keep the original dressing on the wound for 24 hours unless the drainage soaks through. Change the dressing daily thereafter. See your PCM/ED in 2-3 days for recheck and continue direction for wound packing. Monitor for any signs of worsening pain or redness, streaks, and/or fever. Return to the ED if noticing any of the above symptoms or as needed. Take medications as directed. Prescriptions: Cephalexin Monohydrate [Keflex 500 mg Capsule] 500 mg PO TID #30 capsule Sulfamethoxazole/Trimethoprim [Bactrim Ds Tablet] 1 each PO BID #20 tablet Forms: Elevated Blood Pressure, Smoking Cessation Education Referrals: JAYDEN AMES MD [ACTIVE STAFF] - Follow up in 3-5 days [facility] [Provider Group] - Follow up as needed
--- NOTE | 2019-03-06 16:36 | RADIOLOGY REPORT (SQ) ---
EXAM DESCRIPTION: CT ABD/PELVIS WITH IV ONLY COMPLETED DATE/TIME: 03/06/2019 4:28 pm REASON FOR STUDY: mid abd pain COMPARISON: None. TECHNIQUE: CT scan of the abdomen and pelvis performed using helical scanning technique with dynamic intravenous contrast injection. No oral contrast. Images reviewed with lung, soft tissue, and bone windows. Reconstructed coronal and sagittal MPR images reviewed. Delayed images for evaluation of the urinary system also acquired. All images stored on PACS. All CT scanners at this facility use dose modulation, iterative reconstruction, and/or weight based d osing when appropriate to reduce radiation dose to as low as reasonably achievable (ALARA). [facility]: Dose Right [facility]: CareDose [facility]: Dose Right [facility]: Teradose 4D [facility]: [place] [employer] CONTRAST TYPE AND DOSE: contrast/concentration: Isovue 350.00 mg/ml; Total Contrast Delivered: 100.0 ml; Total Saline Delivered: 72.0 ml RENAL FUNCTION: GFR > 60. RADIATION DOSE: CT Rad equipment meets quality standard of care and radiation dose reduction techniq ues were employed. CTDIvol: NaN - NaN mGy. DLP: 0 mGy-cm.. LIMITATIONS: None. FINDINGS: LOWER CHEST: No significant findings. No nodules or infiltrates. LIVER: Normal size. No masses. No dilated ducts. SPLEEN: Normal size. No focal lesions. PANCREAS: No masses. No significant calcifications. No adjacent inflammation or peripancreatic fluid collections. Pancreatic duct not dilated. GALLBLADDER: No identified stones by CT criteria. No inflammatory changes to suggest cholecystitis. ADRENAL GLANDS: No significant masses or asymmetry. RIGHT KIDNEY AND URETER: No solid masses. No significant calcifications. No hydronephrosis or hyd roureter. LEFT KIDNEY AND URETER: No solid masses. No significant calcifications. No hydronephrosis or hydr oureter. AORTA AND VESSELS: No aneurysm. No dissection. Renal arteries, SMA, celiac without stenosis. RETROPERITONEUM: No retroperitoneal adenopathy, hemorrhage or masses. BOWEL AND PERITONEAL CAVITY: No masses or inflammatory changes. No free fluid or peritoneal masses. APPENDIX: Normal. PELVIS: No mass. No free fluid. Normal bladder. ABDOMINAL WALL: No masses. No hernias. BONES: No significant or acute findings. OTHER: No other significant finding. IMPRESSION: NO SIGNIFICANT OR ACUTE FINDING IN THE ABDOMEN OR PELVIS ON CT SCAN WITH IV CONTRAST. TECHNICAL DOCUMENTATION: JOB ID: [id number] Quality ID # [id number]: Final reports with documentation of one or more dose reduction techniques (e.g., Au tomated exposure control, adjustment of the mA and/or kV according to patient size, use of iterative reconstruction technique) 2010 [employer]- All Rights Reserved Reading location - IP/workstation name: [email or web address]
[2019-03-06] MEDS ORDERED: KETOROLAC TROMETHAMINE INJ/PF 30 MG/1 ML SDV IV ONE (16:56)
[2019-03-06 17:51] VITALS: BP 149/100
== END 2019-03-06 17:51 | disposition home or self-care (01) ==
LOC: ER 13:03
DX: N75.0 Cyst of Bartholin's gland (principal); R10.33 Periumbilical pain; F17.200 Nicotine dependence, unspecified, uncomplicated
CPT/HCPCS: 99284; 96374; 36415; 87086; 87070; 87205; 83690; 84703; 85025; 85610; 85730; 87075; 87077; 80053; 81001; 74177; 56420; A6266; J1885

== ENCOUNTER 2019-10-21 00:03 | Emergency (ER) | payer SELFPAY ==
[2019-10-21] MEDS ORDERED: ACETAMINOPHEN 325 MG TABLET PO ONE (01:04)
[2019-10-21] MEDS ORDERED: LIDOCAINE 2% JELLY 5 ML TUBE TOP ONE (04:54)
[2019-10-21] MEDS ORDERED: LIDOCAINE 1% INJ-PF (10 MG/ML) 30 ML SDV INJ ONE (04:55)
--- NOTE | 2019-10-21 04:59 | ER Document Report ---
ED General - General Chief Complaint: Abscess Stated Complaint: VAGINAL ABSCESS Time Seen by Provider: 10/21/19 04:47 Primary Care Provider: COREEN PHILIP MD [ACTIVE STAFF] - Follow up as needed Notes: CHIEF COMPLAINT: Bartholin's abscess HPI: 29-year-old female presenting to the emergency department complaining of progressively worsening swelling and pain to the left labia and Bartholin's region states she has had a Bartholin's abscess they are lanced twice previously. Last time was 6 months ago. She [facility] but did not call them for evaluation prior to coming to the emergency department tonight. No fever ROS: See HPI - all other systems were reviewed and are otherwise negative Constitutional: no fever or recent illness GI: no vomiting, no diarrhea : no dysuria, no vaginal discharge, positive vaginal swelling Integumentary: no rash MEDICATIONS: I agree with the patient medications as charted by the RN. ALLERGIES: I agree with the allergies as charted by the RN. PAST MEDICAL HISTORY/PAST SURGICAL HISTORY: Reviewed and agree as charted by RN. SOCIAL HISTORY: Reviewed and agree as charted by RN. FAMILY HISTORY: No significant familial comorbid conditions directly related to patient complaint EXAM: Reviewed vital signs as charted by RN. CONSTITUTIONAL: Alert and oriented and responds appropriately to questions. Well-appearing; well-nourished, mild distress secondary to pain HEAD: Normocephalic; atraumatic ABD/GI: Normal bowel sounds; non-distended; soft, non-tender, no rebound, no guarding; no palpable organomegaly or masses : Female nurse firearms inspector present. External genitalia noted to have moderate swelling in the left Bartholin's region with tenderness. BACK: The back appears normal and is non-tender to palpation, there is no CVA tenderness EXT: Normal ROM in all joints; no cyanosis, no effusions, no edema SKIN: Normal color for age and race; warm; dry; good turgor NEURO: Moves all extremities equally; Motor and sensory function intact PSYCH: The patient's mood and manner are appropriate. Grooming and personal hygiene are appropriate. MDM: 29-year-old female with a left Bartholin's abscess. Will incise and drain, plan to place catheter or packing, follow-up EXPLOSIVES ENGINEER TRAVEL OUTSIDE OF THE [place] IN LAST 30 DAYS: No - Related Data Allergies/Adverse Reactions: No Known Allergies Allergy (Verified 03/06/19 13:06) Past Medical History - Social History Smoking Status: Never Smoker Family History: CAD, Hypertension Patient has suicidal ideation: No Patient has homicidal ideation: No - Past Medical History Cardiac Medical History: Reports: Hx Hypertension - DURING Denies: Hx Heart Murmur Neurological Medical History: Reports: Hx Seizures - 6MOS-1 YO, NONE SINCE, NO CURRENT SEIZURE MEDS. Denies: Hx Cerebrovascular Accident Renal/ Medical History: Denies: Hx Kidney Stones, Hx Ovarian Cysts, Hx Peritoneal Dialysis, Hx Pelvic Inflammatory Disease Malignancy Medical History: Denies: Hx Breast Cancer, Hx Cervical Cancer, Hx Ovarian Cancer GI Medical History: Denies: Hx Gastroesophageal Reflux Disease, Hx Hiatal Hernia, Hx Ulcer Musculoskeletal Medical History: Reports Hx Musculoskeletal Trauma Skin Medical History: Reports Hx Cellulitis Traumatic Medical History: Reports: Hx Fractures - Ankle and leg Past Surgical History: Reports: Hx Section - Immunizations Immunizations up to date: Yes Hx Diphtheria, Pertussis, Tetanus Vaccination: Yes - received 2011 Physical Exam - Vital signs Vitals: Temp Pulse Resp BP Pulse Ox 98.9 F 93 20 151/96 H 100 10/21/19 00:21 10/21/19 00:21 10/21/19 00:21 10/21/19 00:21 10/21/19 00:21 Course - Vital Signs Vital signs: Temp Pulse Resp BP Pulse Ox 98.9 F 93 20 151/96 H 100 10/21/19 00:21 10/21/19 00:21 10/21/19 00:21 10/21/19 00:21 10/21/19 00:21 Procedures - Incision and Drainage Left Lower Labia Time completed: 05:35 - left Bartholin's abscess Type: Simple Anesthetic type: 1% Lidocaine mL's of anesthetic: 1 Blade size: 11 I&D procedure: Betadine prep applied Incision Method: Incision made by scalpel Amount/type of drainage: 10 Notes: 10/21/19 05:35 With female firearms inspector present Bartholin's abscess was incised and drained. Word catheter was inserted and inflated. Patient tolerated well Discharge - Discharge Clinical Impression: Bartholin's gland abscess Condition: Stable Disposition: HOME, SELF-CARE Additional Instructions: Sitz bath for comfort. Follow-up with [facility] in 3 to 5 days for removal of the packing or catheter and further evaluation and follow-up. Pain medications as prescribed, no driving if taking narcotics for pain Prescriptions: Ibuprofen [Motrin 600 Mg Tablet] 600 mg PO Q6H #15 tablet Hydrocodone/Acetaminophen [[place] 5-325 mg Tablet] 1 tab PO Q4 PRN #15 tablet PRN Reason: Referrals: COREEN PHILIP MD [ACTIVE STAFF] - Follow up as needed
[2019-10-21 05:48] VITALS: BP 145/95
== END 2019-10-21 05:48 | disposition home or self-care (01) ==
LOC: ER 00:03
DX: N75.1 Abscess of Bartholin's gland (principal)
CPT/HCPCS: 99283; 56420; J3490

== ENCOUNTER 2020-01-27 11:49 | Emergency (ER) | payer SELFPAY ==
[2020-01-27] MEDS ORDERED: IBUPROFEN 800 MG TABLET PO ONE (11:56)
--- NOTE | 2020-01-27 11:58 | ER Document Report ---
ED Medical Screen (RME) - General Chief Complaint: Rectal Pain Stated Complaint: RECTAL PAIN Time Seen by Provider: 01/27/20 11:52 Mode of Arrival: Wheelchair Information source: Patient Notes: 29-year-old female with history of Bartholin gland abscesses presents to the emergency department with reports of another abscess. She reports she has had approximately 11 abscesses in the same area over the years. She reports this 1 started approximately 1 week ago. She denies fever vomiting diarrhea. She denies pain with void. She reports she is tried warm packs without relief of symptoms, has not taken anything for pain today. Patient reports she cannot even sit down because it hurts so bad. She did try to contact [facility], her LABOR[employer]FINERY, who without success. I have greeted and performed a rapid initial assessment of this patient. A comprehensive ED assessment and evaluation of the patient, analysis of test results and completion of the medical decision making process will be conducted by additional ED providers. TRAVEL OUTSIDE OF THE [place] IN LAST 30 DAYS: No - Related Data Allergies/Adverse Reactions: No Known Allergies Allergy (Verified 01/27/20 11:52) Past Medical History - Past Medical History Cardiac Medical History: Reports: Hx Hypertension - DURING Denies: Hx Heart Murmur Neurological Medical History: Reports: Hx Seizures - 6MOS-2 YO, NONE SINCE, NO CURRENT SEIZURE MEDS. Denies: Hx Cerebrovascular Accident Renal/ Medical History: Denies: Hx Kidney Stones, Hx Ovarian Cysts, Hx Peritoneal Dialysis, Hx Pelvic Inflammatory Disease Malignancy Medical History: Denies: Hx Breast Cancer, Hx Cervical Cancer, Hx Ovarian Cancer GI Medical History: Denies: Hx Gastroesophageal Reflux Disease, Hx Hiatal Hernia, Hx Ulcer Musculoskeltal Medical History: Reports Hx Musculoskeletal Trauma Skin Medical History: Reports Hx Cellulitis Traumatic Medical History: Reports: Hx Fractures - Ankle and leg Past Surgical History: Reports: Hx Section - Immunizations Immunizations up to date: Yes Hx Diphtheria, Pertussis, Tetanus Vaccination: Yes - received 2011
[2020-01-27] MEDS ORDERED: LIDOCAINE 1% INJ-PF (10 MG/ML) 30 ML SDV INJ ONE (12:16)
[2020-01-27 12:27] LABS: APPEARANCE,URINE SLIGHTLY-CLOUDY; BILIRUBIN,URINE NEGATIVE (NEGATIVE); CALCIUM OXALATE CRYSTALS,URINE RARE /HPF; COLOR,URINE YELLOW; GLUCOSE, URINE NEGATIVE (NEGATIVE); KETONES,URINE NEGATIVE (NEGATIVE); LEUKOCYTE ESTERASE,URINE LARGE (NEGATIVE); NITRITE,URINE NEGATIVE (NEGATIVE); PROTEIN,URINE NEGATIVE (NEGATIVE); URINE SPECIFIC GRAVITY 1.021; UROBILINOGEN,URINE NEGATIVE mg/dL (<2.0)
--- NOTE | 2020-01-27 12:57 | ER Document Report ---
ED Skin Rash/Insect Bite/Abscs - General Chief Complaint: Vaginal Pain Stated Complaint: RECTAL PAIN Time Seen by Provider: 01/27/20 11:52 Primary Care Provider: [facility] [Provider Group] - Follow up as needed Mode of Arrival: Wheelchair Information source: Patient Notes: 29-year-old female with no previous medical problems presents to the emergency room with a recurring Bartholin cyst that she has had for the past week. States is gotten worse since yesterday she has had them previously lanced this is her fourth one.. States it started draining last night but is only gotten minimal drainage. 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 Denies fevers. Denies urinary symptoms. Denies any other vaginal discharge, denies any change in sexual partners, no concerns for STDs. TRAVEL OUTSIDE OF THE [place] IN LAST 30 DAYS: No - Related Data Allergies/Adverse Reactions: No Known Allergies Allergy (Verified 01/27/20 11:52) Past Medical History - General Information source: Patient - Social History Smoking Status: Current Every Day Smoker Chew tobacco use (# tins/day): No Frequency of alcohol use: None Drug Abuse: None Family History: CAD, Hypertension Patient has homicidal ideation: No - Past Medical History Cardiac Medical History: Reports: Hx Hypertension - DURING Denies: Hx Heart Murmur Neurological Medical History: Reports: Hx Seizures - 6MOS-2 YO, NONE SINCE, NO CURRENT SEIZURE MEDS. Denies: Hx Cerebrovascular Accident Renal/ Medical History: Denies: Hx Kidney Stones, Hx Ovarian Cysts, Hx Peritoneal Dialysis, Hx Pelvic Inflammatory Disease Malignancy Medical History: Denies: Hx Breast Cancer, Hx Cervical Cancer, Hx Ovarian Cancer GI Medical History: Denies: Hx Gastroesophageal Reflux Disease, Hx Hiatal Hernia, Hx Ulcer Musculoskeletal Medical History: Reports Hx Musculoskeletal Trauma Skin Medical History: Reports Hx Cellulitis Traumatic Medical History: Reports: Hx Fractures - Ankle and leg Past Surgical History: Reports: Hx Section - Immunizations Immunizations up to date: Yes Hx Diphtheria, Pertussis, Tetanus Vaccination: Yes - received 2011 Review of Systems - Review of Systems Constitutional: No symptoms reported Cardiovascular: No symptoms reported Respiratory: No symptoms reported Genitourinary: No symptoms reported Female Genitourinary: Other - Left labia swelling. denies: Vaginal discharge, Vaginal odor, Painful intercourse Skin: Other - Swelling to left labia Neurological/Psychological: No symptoms reported -: Yes All other systems reviewed and negative Physical Exam - Vital signs Vitals: Temp Pulse Resp BP Pulse Ox 98.4 F 121 H 19 157/99 H 98 01/27/20 11:52 01/27/20 11:52 01/27/20 11:52 01/27/20 11:52 01/27/20 11:52 - General General appearance: Appears well, Alert In distress: Moderate - Respiratory Respiratory status: No respiratory distress Chest status: Nontender Breath sounds: Normal Chest palpation: Normal - Cardiovascular Rhythm: Tachycardia Heart sounds: Normal auscultation Murmur: No Friction rub: No Gallop: None auscultated - Genitourinary External exam: Other - There is a 4 cm left labial Bartholin cyst that is draining a minimal amount of purulent drainage. Tender to palpation. SHAYNE Alvarez present for exam - Neurological Neuro grossly intact: Yes Cognition: Normal Orientation: AAOx4 [place] Coma Scale Eye Opening: Spontaneous [place] Coma Scale Verbal: Oriented [place] Coma Scale Motor: Obeys Commands [place] Coma Scale Total: 15 Speech: Normal Motor strength normal: LUE, RUE, LLE, RLE Sensory: Normal Course - Vital Signs Vital signs: Temp Pulse Resp BP Pulse Ox 97.7 F 77 16 149/88 H 98 01/27/20 13:11 01/27/20 13:11 01/27/20 13:11 01/27/20 13:11 01/27/20 13:11 - Laboratory Laboratory results interpreted by me: 01/27/20 12:00 Ur Leukocyte Esterase LARGE H Urine Ascorbic Acid 20 H Procedures - Incision and Drainage Left Labia Time completed: 12:57 - SHAYNE Alvarez coke crusher operator during procedure Type: Simple Anesthetic type: 1% Lidocaine mL's of anesthetic: 2 Blade size: 11 I&D procedure: Betadine prep applied, Other - Sterile technique Incision Method: Incision made by scalpel Amount/type of drainage: Large amount of following culture results and blood noted. Notes: 01/27/20 13:00 Sterile technique, patient tolerated well. Female anatomy: 1 - 4 cm Bartholin's cyst Discharge - Discharge Clinical Impression: Bartholin gland cyst Condition: Stable Disposition: HOME, SELF-CARE Instructions: Bartholin Gland Cyst or Abscess ([facility]), Post Incision and Drainage Additional Instructions: Warm sitz bath's 3 times a day. No sexual activity until cyst has healed. Follow-up with your cab station attendant this week. Return for any new or worsening symptoms. Referrals: [facility] [Provider Group] - Follow up as needed
[2020-01-27 13:13] VITALS: BP 149/88
== END 2020-01-27 13:11 | disposition home or self-care (01) ==
LOC: ER 11:49
DX: N75.0 Cyst of Bartholin's gland (principal); F17.200 Nicotine dependence, unspecified, uncomplicated
CPT/HCPCS: 99283; 81025; 81001; 56420; J3490

== ENCOUNTER 2020-03-22 22:58 | Emergency (ER) | payer SELFPAY ==
[2020-03-22 23:15] VITALS: BP 169/113
--- NOTE | 2020-03-22 23:39 | ER Document Report ---
ED Medical Screen (RME) - General Chief Complaint: Abscess Stated Complaint: ABSCESS (VAGINAL) Time Seen by Provider: 03/22/20 23:38 Mode of Arrival: Ambulatory Information source: Patient Notes: 30-year-old female patient presents emergency department concern for Bartholin gland cyst. She states it is on the left side and has been there for about a week. She has had these drained in the past. Unable to examine the area due to lack of privacy in triage. I have greeted and performed a rapid initial assessment of this patient. A comprehensive ED assessment and evaluation of the patient, analysis of test results and completion of the medical decision making process will be conducted by additional ED providers. I have specifically instructed the patient or family members with the patient to immediately return to any nursing staff should anything change in the patient's condition or with their chief complaint. TRAVEL OUTSIDE OF THE [place] IN LAST 30 DAYS: No - Related Data Allergies/Adverse Reactions: No Known Allergies Allergy (Verified 01/27/20 11:52) Past Medical History - Past Medical History Cardiac Medical History: Reports: Hx Hypertension - DURING Denies: Hx Heart Murmur Neurological Medical History: Reports: Hx Seizures - 6MOS-1 YO, NONE SINCE, NO CURRENT SEIZURE MEDS. Denies: Hx Cerebrovascular Accident Renal/ Medical History: Denies: Hx Kidney Stones, Hx Ovarian Cysts, Hx Peritoneal Dialysis, Hx Pelvic Inflammatory Disease Malignancy Medical History: Denies: Hx Breast Cancer, Hx Cervical Cancer, Hx Ovarian Cancer GI Medical History: Denies: Hx Gastroesophageal Reflux Disease, Hx Hiatal Hernia, Hx Ulcer Musculoskeltal Medical History: Reports Hx Musculoskeletal Trauma Skin Medical History: Reports Hx Cellulitis Traumatic Medical History: Reports: Hx Fractures - Ankle and leg Past Surgical History: Reports: Hx Section - Immunizations Immunizations up to date: Yes Hx Diphtheria, Pertussis, Tetanus Vaccination: Yes - received 2011 Physical Exam - Vital signs Vitals: Temp Pulse Resp BP Pulse Ox 98.7 F 87 18 169/113 H 100 03/22/20 23:12 03/22/20 23:12 03/22/20 23:12 03/22/20 23:12 03/22/20 23:12 Course - Vital Signs Vital signs: Temp Pulse Resp BP Pulse Ox 98.7 F 87 18 169/113 H 100 03/22/20 23:12 03/22/20 23:12 03/22/20 23:12 03/22/20 23:12 03/22/20 23:12
== END 2020-03-23 01:55 | disposition left against medical advice (07) ==
LOC: ER 22:58
DX: Z53.20 Procedure and treatment not carried out because of patient's decision for unspecified reasons (principal); N76.4 Abscess of vulva
CPT/HCPCS: 99281

== ENCOUNTER 2020-03-26 14:19 | Emergency (ER) | payer SELFPAY ==
--- NOTE | 2020-03-26 15:01 | ER Document Report ---
ED Medical Screen (RME) - General Chief Complaint: Abscess Stated Complaint: ABSCESS Time Seen by Provider: 03/26/20 14:56 TRAVEL OUTSIDE OF THE [place] IN LAST 30 DAYS: No - HPI Notes: 03/26/20 14:57 30-year-old female presents emergency room for complaints of a left Bartholin cyst abscess. Patient states that her abscess started approximately 1 week ago. Has a history of recurring left Bartholin cyst abscesses. States her last menstrual cycle 04/05/2021. Reports pain is 4 out of 5, achy throbbing constant. Patient did come in on the but left due to not being seen in the back quick enough. Denies any chest pain or shortness of breath. States she typically does not have a history of hypertension although she was hypertensive in triage today. I have greeted and performed a rapid initial assessment of this patient. A comprehensive ED assessment and evaluation of the patient, analysis of test results and completion of the medical decision making process will be conducted by additional ED providers. PHYSICAL EXAMINATION: GENERAL: Well-appearing, well-nourished and in no acute distress. CV: s1, s2 regular LUNGS: No respiratory distress Due to lack of privacy in triage, unable to perform a exam. She will be seen in the back for this - Related Data Allergies/Adverse Reactions: No Known Allergies Allergy (Verified 03/26/20 14:57) Past Medical History - Past Medical History Cardiac Medical History: Reports: Hx Hypertension - DURING Denies: Hx Heart Murmur Neurological Medical History: Reports: Hx Seizures - 5MOS-1 YO, NONE SINCE, NO CURRENT SEIZURE MEDS. Denies: Hx Cerebrovascular Accident Renal/ Medical History: Denies: Hx Kidney Stones, Hx Ovarian Cysts, Hx Peritoneal Dialysis, Hx Pelvic Inflammatory Disease Malignancy Medical History: Denies: Hx Breast Cancer, Hx Cervical Cancer, Hx Ovarian Cancer GI Medical History: Denies: Hx Gastroesophageal Reflux Disease, Hx Hiatal Hernia, Hx Ulcer Musculoskeltal Medical History: Reports Hx Musculoskeletal Trauma Skin Medical History: Reports Hx Cellulitis Traumatic Medical History: Reports: Hx Fractures - Ankle and leg Past Surgical History: Reports: Hx Section - Immunizations Immunizations up to date: Yes Hx Diphtheria, Pertussis, Tetanus Vaccination: Yes - received 2011 Physical Exam - Vital signs Vitals: Temp Pulse Resp BP Pulse Ox 98.6 F 96 16 160/107 H 100 03/26/20 14:36 03/26/20 14:36 03/26/20 14:36 03/26/20 14:36 03/26/20 14:36 Course - Vital Signs Vital signs: Temp Pulse Resp BP Pulse Ox 98.6 F 96 16 160/107 H 100 03/26/20 14:36 03/26/20 14:36 03/26/20 14:36 03/26/20 14:36 03/26/20 14:36
[2020-03-26] MEDS ORDERED: LIDOCAINE 1% INJ-PF (10 MG/ML) 30 ML SDV INJ ONE (16:37)
[2020-03-26] MEDS ORDERED: SULFAMETHOXAZOLE/TRIMETHOPRIM 800-160 MG TABLET PO ONE (16:42)
--- NOTE | 2020-03-26 16:56 | ER Document Report ---
ED General - General Chief Complaint: Abscess Stated Complaint: ABSCESS Time Seen by Provider: 03/26/20 14:56 Notes: HPI: 30-year-old female who presents today with pain and swelling to the left area of the vagina for 1 week. No fevers or vomiting. Patient is not a diabetic. Patient has had this x3 in the past. She has never seen an GLUE LINE OPERATOR. They have tried a Wurd catheter x1 in the past and it was unsuccessful and "fell out". ROS: See HPI All other review of systems reviewed and otherwise negative Reviewed vital signs and nursing note as charted by RN. PHYSICAL EXAM: ABD/GI: Normal bowel sounds; non-distended; soft, non-tender; no palpable organomegaly or masses BACK: The back appears normal and is non-tender to palpation : Meatman present I performed a pelvic examination showing a large 4 cm left-sided Bartholin cyst TRAVEL OUTSIDE OF THE [place] IN LAST 30 DAYS: No - Related Data Allergies/Adverse Reactions: No Known Allergies Allergy (Verified 03/26/20 14:57) Past Medical History - Social History Smoking Status: Unknown if Ever Smoked Family History: CAD, Hypertension - Past Medical History Cardiac Medical History: Reports: Hx Hypertension - DURING Denies: Hx Heart Murmur Neurological Medical History: Reports: Hx Seizures - 5MOS-1 YO, NONE SINCE, NO CURRENT SEIZURE MEDS. Denies: Hx Cerebrovascular Accident Renal/ Medical History: Denies: Hx Kidney Stones, Hx Ovarian Cysts, Hx Peritoneal Dialysis, Hx Pelvic Inflammatory Disease Malignancy Medical History: Denies: Hx Breast Cancer, Hx Cervical Cancer, Hx Ovarian Cancer GI Medical History: Denies: Hx Gastroesophageal Reflux Disease, Hx Hiatal Hernia, Hx Ulcer Musculoskeletal Medical History: Reports Hx Musculoskeletal Trauma Skin Medical History: Reports Hx Cellulitis Traumatic Medical History: Reports: Hx Fractures - Ankle and leg Past Surgical History: Reports: Hx Section - Immunizations Immunizations up to date: Yes Hx Diphtheria, Pertussis, Tetanus Vaccination: Yes - received 2011 Physical Exam - Vital signs Vitals: Temp Pulse Resp BP Pulse Ox 98.6 F 96 16 160/107 H 100 03/26/20 14:36 03/26/20 14:36 03/26/20 14:36 03/26/20 14:36 03/26/20 14:36 Course - Re-evaluation Re-evalutation: 03/26/20 16:56 Given the above history and physical I verbally consented the patient for incision and drainage and Word catheter placement. I did call and speak directly to the GLUE LINE OPERATOR doctor well to help expedite follow-up. She took her name and birthdate and will have the patient follow-up this Wednesday or Wednesday. I will place the patient on Bactrim after negative test and provide strict return precautions. 03/26/20 17:35 I perform the incision and drainage of the Bartholin cyst and sent a culture. I have also placed a Word catheter. - Vital Signs Vital signs: Temp Pulse Resp BP Pulse Ox 98.6 F 96 16 160/107 H 100 03/26/20 14:36 03/26/20 14:36 03/26/20 14:36 03/26/20 14:36 03/26/20 14:36 Procedures - Incision and Drainage Left Labia Type: Simple Anesthetic type: 1% Lidocaine mL's of anesthetic: 5 Blade size: 11 I&D procedure: Chlorprep applied Incision Method: Incision made by scalpel Amount/type of drainage: 20 Notes: 03/26/20 17:37 I did perform the incision and drainage with insertion of the Word catheter with 4 cc of normal saline Discharge - Discharge Clinical Impression: Bartholin cyst Condition: Good Disposition: HOME, SELF-CARE Additional Instructions: Come back immediately with any increased pain, swelling, fever, vomiting, redness or increased drainage, or any other acute problems. Please make sure that you follow-up with your GLUE LINE OPERATOR that we have expedited for you. Prescriptions: Sulfamethoxazole/Trimethoprim [Bactrim Ds Tablet] 2 each PO BID #[id number] tablet Referrals: SHIRA LAIRD MD [ACTIVE PROVISIONAL STAFF] - Follow up as needed
[2020-03-26 18:20] VITALS: BP 169/111
== END 2020-03-26 18:06 | disposition home or self-care (01) ==
LOC: ER 14:19
PROC: 0U9L0ZZ Drainage of Vestibular Gland, Open Approach (ICD-10-PCS; principal; 2020-03-26)
DX: N75.1 Abscess of Bartholin's gland (principal)
CPT/HCPCS: 99283; 87070; 87205; 82962; 81025; 87075; 56420; J3490; 87077